=== PATIENT | female | born 1965 | race Caucasian/White ===

== ENCOUNTER → 2017-01-27 | Outpatient (CLI) | payer OTHER ==
--- NOTE | 2017-01-27 12:21 | REP ---
RIGHT KNEE SERIES: Five views right knee performed. There is no acute fracture or dislocation. There is mild medial joint space narrowing and marginal spurring. Vague calcification projecting along the medial femoral condyle could represent a joint body measuring about 6 x 3 mm. There is moderate lateral patellofemoral compartment narrowing with subchondral sclerosis. There is a large spur of the lateral patellar facet. There is moderate spurring of the superior and inferior poles of the patella. There may be a small joint effusion. IMPRESSION: Moderate degenerative changes. Cannot exclude medial joint body. Signed by Андрей Torrez MD 01/27/2017 05:04 P
== END ==
LOC: M WUC 11:20
PROVIDERS: ATTEND Nurse Practitioner Family
DX: M17.11 Unilateral primary osteoarthritis, right knee (principal)